=== PATIENT | female | born 1955 | race Caucasian/White ===

== ENCOUNTER 2022-09-27 11:47 | Emergency (ER) | payer MEDICARE, MEDICAID ==
[~2022-09-27] VITALS: Ht 165.1 cm; Wt 82.6 kg
[2022-09-27 12:07] VITALS: BP_SYST 135
[2022-09-27] MEDS ORDERED: OXYC-128 PO (12:55)
[2022-09-27] MEDS ORDERED: NAPR-688 PO (12:55)
[2022-09-27] MEDS ORDERED: KETOROLAC TROMETHAMINE 60 MG/2 ML VIAL IM ONE (13:00)
[2022-09-27 13:46] VITALS: BP_SYST 150
== END 2022-09-27 13:48 | disposition home or self-care (01) ==
LOC: SED 11:47
DX: M17.11 Unilateral primary osteoarthritis, right knee (principal); M25.561 Pain in right knee; Z79.899 Other long term (current) drug therapy
CPT/HCPCS: 99283; 73564; 96372; J1885

== ENCOUNTER 2023-01-18 12:30 | Inpatient (IN) | payer MEDICAID, MEDICARE ==
[~2023-01-18] VITALS: Ht 154.9 cm; Wt 76.7 kg
[2023-01-18 12:30] VITALS: BP_SYST 137; PULSE 87; RESP 18; TEMP 97.3; O2SAT 96
[~2023-01-18 12:30] MED LIST: NAPR-688 PO; OXYC-128 PO
[2023-01-18] MEDS ORDERED: ASPIRIN 81 MG TAB.CHEW PO ONE (12:45)
[2023-01-18 12:58] LABS: BASOPHILS % (AUTO) 0.6 % (0.0-2.0); EOSINOPHILS # (AUTO) 0.2 K/uL (0.0-0.4); EOSINOPHILS % (AUTO) 2.7 % (0.0-4.0); HEMATOCRIT 33.9 % (36-48); HEMOGLOBIN 11.1 g/dL (12.0-16.0); LYMPHOCYTES # (AUTO) 1.9 K/uL (1.0-5.5); LYMPHOCYTES % (AUTO) 25.2 % (20.5-51.5); MEAN CORPUSCULAR HEMOGLOBIN 27 pg (27-31); MEAN CORPUSCULAR HGB CONC 33 % (32-36); MEAN CORPUSCULAR VOLUME 84 fL (79.0-98.0); MONOCYTES # (AUTO) 0.6 K/uL (0.0-1.0); MONOCYTES % (AUTO) 7.6 % (1.7-9.3); NEUTROPHILS # (AUTO) 4.8 K/uL (1.8-7.7); NEUTROPHILS % (AUTO) 63.9 % (40.0-70.0); PLATELET COUNT (AUTO) 308 K/uL (130-430); RED BLOOD CELL COUNT(AUTO) 4.06 MIL/uL (4.2-6.2); RED CELL DISTRIBUTION WIDTH 14.6 % (9.0-15.0); WHITE BLOOD COUNT (AUTO) 7.6 K/uL (4.8-10.8)
[2023-01-18 13:10] LABS: ANION GAP 6 (5-15); CALCIUM 8.8 mg/dL (8.4-11.0); CARBON DIOXIDE 28 mmol/L (23-29); CHLORIDE 100 mmol/L (98-107); CREATININE 0.87 mg/dL (0.55-1.30); GFR AFRICAN AMERICAN 83 mL/min (>90); GLUCOSE 207 mg/dL (74-106); POTASSIUM 3.4 mmol/L (3.5-5.1); SODIUM SERUM 134 mmol/L (136-145); UREA NITROGEN, BLOOD 13 mg/dL (8-21)
[2023-01-18 13:17] LABS: ALANINE AMINOTRANSFERASE 23 U/L (12-78); ALBUMIN 3.8 g/dL (3.4-4.8); ASPARTATE AMINOTRANSFERASE 28 U/L (10-37); GFR NON AFRICAN-AMERICAN 69 mL/min (>90); TOTAL BILIRUBIN 0.4 mg/dL (0.0-1.0)
[2023-01-18 16:30] VITALS: BP_SYST 116; PULSE 73; RESP 16; TEMP 97.9; O2SAT 98
[2023-01-18 17:30] VITALS: BP_SYST 112; PULSE 78; RESP 17; TEMP 97.1; O2SAT 98
[2023-01-18] MEDS ORDERED: OXYCODONE/ACETAMINOPHEN 5-325 TABLET PO PRN (17:30)
[2023-01-18] MEDS ORDERED: PANTOPRAZOLE SODIUM 40 MG TAB PO ONE (17:45)
[2023-01-18] MEDS ORDERED: MORPHINE 4 MG INJ. 4 MG/ML VIAL IVP PRN (17:45)
[2023-01-18] MEDS ORDERED: cloNIDine HCL 0.1 MG TABLET PO PRN (17:45)
[2023-01-18] MEDS ORDERED: NITROGLYCERIN 0.4 MG TAB.SUBL SL PRN (17:45)
[2023-01-18] MEDS ORDERED: ACETAMINOPHEN 325 MG TABLET PO PRN (18:00)
[2023-01-18] MEDS ORDERED: ONDANSETRON HCL 4 MG/2 ML VIAL IVP PRN (18:00)
[2023-01-18] MEDS ORDERED: TEMAZEPAM 15 MG CAPSULE PO PRN (18:00)
[2023-01-18 18:01] LABS: BILIRUBIN,URINE NEGATIVE (NEGATIVE); BLOOD, URINE NEGATIVE (NEGATIVE); CLARITY/URINE CLEAR (CLEAR); COLOR,URINE YELLOW (YELLOW); GLUCOSE,URINE NEGATIVE (NEGATIVE); KETONES,URINE NEGATIVE (NEGATIVE); LEUKOCYTE ESTERASE ,URINE NEGATIVE (NEGATIVE); NITRITE, URINE NEGATIVE (NEGATIVE); PROTEIN URINE NEGATIVE (NEGATIVE); UROBILINOGEN,URINE 0.2 (0.2-1.0)
[2023-01-18] MEDS: NAPROXEN 250 MG TABLET PO SCH (22:08)
[2023-01-18] MEDS: metFORMIN HCL 500 MG TABLET PO SCH (22:08)
[2023-01-18 23:48] VITALS: O2SAT 98
[2023-01-19 00:19] VITALS: BP_SYST 117; PULSE 73; RESP 20; TEMP 97; O2SAT 97
[2023-01-19 05:30] VITALS: O2SAT 96
[2023-01-19 05:58] LABS: BASOPHILS % (AUTO) 0.7 % (0.0-2.0); EOSINOPHILS # (AUTO) 0.4 K/uL (0.0-0.4); EOSINOPHILS % (AUTO) 5.7 % (0.0-4.0); HEMATOCRIT 32.7 % (36-48); HEMOGLOBIN 10.7 g/dL (12.0-16.0); LYMPHOCYTES # (AUTO) 1.9 K/uL (1.0-5.5); MEAN CORPUSCULAR HEMOGLOBIN 27 pg (27-31); MEAN CORPUSCULAR HGB CONC 33 % (32-36); MEAN CORPUSCULAR VOLUME 84 fL (79.0-98.0); MONOCYTES # (AUTO) 0.7 K/uL (0.0-1.0); MONOCYTES % (AUTO) 9.2 % (1.7-9.3); NEUTROPHILS # (AUTO) 4.3 K/uL (1.8-7.7); NEUTROPHILS % (AUTO) 58.4 % (40.0-70.0); PLATELET COUNT (AUTO) 289 K/uL (130-430); RED BLOOD CELL COUNT(AUTO) 3.91 MIL/uL (4.2-6.2); RED CELL DISTRIBUTION WIDTH 14.7 % (9.0-15.0); WHITE BLOOD COUNT (AUTO) 7.3 K/uL (4.8-10.8)
[2023-01-19 06:11] LABS: CALCIUM 8.5 mg/dL (8.4-11.0); CREATININE 0.91 mg/dL (0.55-1.30); POTASSIUM 3.9 mmol/L (3.5-5.1)
[2023-01-19 06:24] LABS: ALBUMIN 3.6 g/dL (3.4-4.8); THYROID STIMULATING HORMONE 8.08 uIu/mL (0.34-4.82); TOTAL BILIRUBIN 0.4 mg/dL (0.0-1.0); TOTAL PROTEIN, SERUM 6.3 g/dL (6.4-8.3)
[2023-01-19 08:00] VITALS: BP_SYST 114; PULSE 78; RESP 16; TEMP 97; O2SAT 98
[2023-01-19] MEDS: metFORMIN HCL 500 MG TABLET PO SCH ×2 (08:47→17:09)
[2023-01-19] MEDS: ASPIRIN 81 MG TAB.CHEW PO SCH (08:47)
[2023-01-19] MEDS: NAPROXEN 250 MG TABLET PO SCH ×2 (08:49→20:13)
[2023-01-19] MEDS: PANTOPRAZOLE SODIUM 40 MG TAB PO SCH (08:49)
[2023-01-19] MEDS ORDERED: OLAN10TA3 PO (09:28)
[2023-01-19] MEDS ORDERED: CLON0.5T4 PO (09:28)
[2023-01-19] MEDS ORDERED: ESCI20TA PO (09:28)
[2023-01-19] MEDS ORDERED: FENO48TA8 PO (09:28)
[2023-01-19] MEDS ORDERED: TRAM50TA2 PO (09:28)
[2023-01-19] MEDS ORDERED: LEVO25TA7 PO (09:28)
[2023-01-19] MEDS ORDERED: NOR10 PO (09:28)
[2023-01-19] MEDS ORDERED: FINE10TA PO (09:28)
[2023-01-19] MEDS ORDERED: LEVO100T9 PO (09:28)
[2023-01-19] MEDS ORDERED: LISI1TAB57 PO (09:28)
[2023-01-19 12:00] VITALS: BP_SYST 120; PULSE 68; RESP 16; TEMP 97; O2SAT 96
[2023-01-19] MEDS: traMADol HCL HCL 50 MG TABLET (ULTRAM) PO PRN ×3 (12:34→23:23)
[2023-01-19 16:00] VITALS: BP_SYST 125; PULSE 68; RESP 18; TEMP 97; O2SAT 96
[2023-01-19 20:00] VITALS: BP_SYST 140; PULSE 83; RESP 18; TEMP 97.6; O2SAT 95
[2023-01-19] MEDS: INSULIN REGULAR, HUMAN 100 UNITS/ML, 3 ML VIAL (humuLIN R) SUBCUT PRN (20:21)
[2023-01-19] MEDS ORDERED: OLANZapine 10 MG TABLET PO SCH (21:00)
[2023-01-20 01:10] VITALS: BP_SYST 135; PULSE 77; RESP 16; TEMP 96.5; O2SAT 96
[2023-01-20 02:02] VITALS: O2SAT 95
[2023-01-20 07:00] VITALS: BP_SYST 126; PULSE 70; RESP 16; TEMP 97.8; O2SAT 96
[2023-01-20] MEDS ORDERED: LEVOTHYROXINE SODIUM 0.1 MG TABLET PO SCH (07:00)
[2023-01-20] MEDS ORDERED: LEVOTHYROXINE SODIUM 0.025 MG TABLET PO SCH ×2 (07:00)
[2023-01-20 07:05] VITALS: O2SAT 96
[2023-01-20 09:00] VITALS: BP_SYST 126; PULSE 70; RESP 16; TEMP 97.8; O2SAT 97
[2023-01-20] MEDS ORDERED: amLODIPine BESYLATE 10 MG TABLET PO SCH (09:00)
[2023-01-20] MEDS ORDERED: FENOFIBRATE NANOCRYSTALLIZED 48 MG TABLET (TRICOR) PO SCH (09:00)
[2023-01-20] MEDS ORDERED: ESCITALOPRAM OXALATE 10 MG TABLET PO SCH (09:00)
[2023-01-20] MEDS ORDERED: CITALOPRAM HYDROBROMIDE 20 MG TABLET PO SCH (09:00)
[2023-01-20] MEDS ORDERED: clonazePAM 0.5 MG TABLET PO SCH (09:00)
[2023-01-20] MEDS: metFORMIN HCL 500 MG TABLET PO SCH (10:40)
[2023-01-20] MEDS: ASPIRIN 81 MG TAB.CHEW PO SCH (10:41)
[2023-01-20] MEDS: NAPROXEN 250 MG TABLET PO SCH (10:41)
[2023-01-20] MEDS: PANTOPRAZOLE SODIUM 40 MG TAB PO SCH (10:43)
[2023-01-20] MEDS: INSULIN REGULAR, HUMAN 100 UNITS/ML, 3 ML VIAL (humuLIN R) SUBCUT PRN (12:14)
[2023-01-20 13:00] VITALS: BP_SYST 128; PULSE 72; RESP 18; TEMP 98; O2SAT 100
== END 2023-01-20 14:30 | disposition home or self-care (01) | DRG 198 ==
LOC: SED 12:30 → STU 14:56 → UNDOADMOB 14:56 → OBSVTOIN 15:00 → STU 15:00 → SMU 01-20 02:25 → STU 01-20 02:25 → INTOOBSV 01-20 14:16 → OBSVTOIN 01-20 14:16 → UNDODISIN 01-20 14:30
PROVIDERS: ADMIT Internal Medicine; ATTEND Internal Medicine
DX: R07.89 Other chest pain (principal); I25.10 Atherosclerotic heart disease of native coronary artery without angina pectoris; D64.9 Anemia, unspecified; E66.9 Obesity, unspecified; E11.9 Type 2 diabetes mellitus without complications; E03.9 Hypothyroidism, unspecified; F99 Mental disorder, not otherwise specified; Z96.659 Presence of unspecified artificial knee joint; Z68.31 Body mass index [BMI] 31.0-31.9, adult; E78.5 Hyperlipidemia, unspecified; I10 Essential (primary) hypertension; M19.90 Unspecified osteoarthritis, unspecified site; Z87.891 Personal history of nicotine dependence
CPT/HCPCS: 36415; 71045; 80053; 80061; 81003; 82962; 83037; 83690; 83880; 84439; 84443; 84484; 85025; 93005; 93306; 99285; G0378

== ENCOUNTER 2023-03-08 11:46 | Inpatient (IN) | payer MEDICAID, MEDICARE ==
[~2023-03-08] VITALS: Ht 154.9 cm; Wt 78.9 kg
[~2023-03-08 11:46] MED LIST changes: +CLON0.5T4 PO; +ESCI20TA PO; +FENO48TA8 PO; +FINE10TA PO; +LEVO100T9 PO; +LEVO25TA7 PO; +LISI1TAB57 PO; +NOR10 PO; +OLAN10TA3 PO; +TRAM50TA2 PO
[2023-03-08 11:57] VITALS: BP_SYST 137; PULSE 92; RESP 20; TEMP 98; O2SAT 98
[2023-03-08] MEDS ORDERED: ASPIRIN 81 MG TAB.CHEW PO ONE (12:45)
[2023-03-08 12:54] LABS: BASOPHILS % (AUTO) 0.5 % (0.0-2.0); EOSINOPHILS # (AUTO) 0.1 K/uL (0.0-0.4); EOSINOPHILS % (AUTO) 1.5 % (0.0-4.0); HEMATOCRIT 33.9 % (36-48); HEMOGLOBIN 11.1 g/dL (12.0-16.0); LYMPHOCYTES # (AUTO) 1.5 K/uL (1.0-5.5); LYMPHOCYTES % (AUTO) 17.3 % (20.5-51.5); MEAN CORPUSCULAR HEMOGLOBIN 27 pg (27-31); MEAN CORPUSCULAR HGB CONC 33 % (32-36); MEAN CORPUSCULAR VOLUME 84 fL (79.0-98.0); MONOCYTES # (AUTO) 0.5 K/uL (0.0-1.0); MONOCYTES % (AUTO) 6.2 % (1.7-9.3); NEUTROPHILS # (AUTO) 6.5 K/uL (1.8-7.7); NEUTROPHILS % (AUTO) 74.5 % (40.0-70.0); PLATELET COUNT (AUTO) 315 K/uL (130-430); RED BLOOD CELL COUNT(AUTO) 4.05 MIL/uL (4.2-6.2); RED CELL DISTRIBUTION WIDTH 15.5 % (9.0-15.0); WHITE BLOOD COUNT (AUTO) 8.8 K/uL (4.8-10.8)
[2023-03-08] MEDS ORDERED: ASPIRIN 81 MG TAB.CHEW ONE (12:56)
[2023-03-08 13:15] LABS: ANION GAP 10 (5-15); CALCIUM 8.2 mg/dL (8.4-11.0); CARBON DIOXIDE 26 mmol/L (23-29); CHLORIDE 102 mmol/L (98-107); CREATININE 0.93 mg/dL (0.55-1.30); GFR AFRICAN AMERICAN 77 mL/min (>90); GLUCOSE 161 mg/dL (74-106); POTASSIUM 3.5 mmol/L (3.5-5.1); SODIUM SERUM 138 mmol/L (136-145); UREA NITROGEN, BLOOD 20 mg/dL (8-21)
[2023-03-08 13:18] LABS: GFR NON AFRICAN-AMERICAN 64 mL/min (>90)
[2023-03-08 13:22] LABS: ALANINE AMINOTRANSFERASE 31 U/L (12-78); ASPARTATE AMINOTRANSFERASE 31 U/L (10-37); TOTAL BILIRUBIN 0.4 mg/dL (0.0-1.0); TOTAL PROTEIN, SERUM 6.9 g/dL (6.4-8.3)
[2023-03-08] MEDS ORDERED: cloNIDine HCL 0.1 MG TABLET PO PRN (14:00)
[2023-03-08] MEDS ORDERED: DEXTROSE 50% JECT 50 ML DISP.SYRIN IVP PRN (20:15)
[2023-03-08] MEDS ORDERED: D5W 1,000 ML IV PRN (20:15)
[2023-03-08] MEDS: ENOXAPARIN SODIUM 40 MG/0.4 ML SYRINGE SUBCUT SCH (21:56)
[2023-03-08] MEDS: OLANZapine 10 MG TABLET PO SCH (21:56)
[2023-03-08 22:22] VITALS: BP_SYST 127; PULSE 76; RESP 16; TEMP 98.4
[2023-03-09] VITALS (7 sets, daily range): BP systolic 117–147; PULSE 68–79; RESP 16–19; TEMP 97–98.8; O2SAT 96–100
[2023-03-09] MEDS: LEVOTHYROXINE SODIUM 0.1 MG TABLET PO SCH (06:24)
[2023-03-09] MEDS: LEVOTHYROXINE SODIUM 0.025 MG TABLET PO SCH (06:24)
[2023-03-09] MEDS: INSULIN REGULAR, HUMAN 100 UNITS/ML, 3 ML VIAL (humuLIN R) SUBCUT PRN ×2 (06:34→21:00)
[2023-03-09 07:51] LABS: BASOPHILS % (AUTO) 0.6 % (0.0-2.0); EOSINOPHILS # (AUTO) 0.5 K/uL (0.0-0.4); HEMATOCRIT 34.8 % (36-48); HEMOGLOBIN 11.3 g/dL (12.0-16.0); LYMPHOCYTES # (AUTO) 1.8 K/uL (1.0-5.5); LYMPHOCYTES % (AUTO) 23.4 % (20.5-51.5); MEAN CORPUSCULAR HEMOGLOBIN 27 pg (27-31); MEAN CORPUSCULAR HGB CONC 33 % (32-36); MEAN CORPUSCULAR VOLUME 84 fL (79.0-98.0); MONOCYTES # (AUTO) 0.6 K/uL (0.0-1.0); MONOCYTES % (AUTO) 8.1 % (1.7-9.3); NEUTROPHILS # (AUTO) 4.8 K/uL (1.8-7.7); NEUTROPHILS % (AUTO) 61.9 % (40.0-70.0); PLATELET COUNT (AUTO) 294 K/uL (130-430); RED BLOOD CELL COUNT(AUTO) 4.14 MIL/uL (4.2-6.2); RED CELL DISTRIBUTION WIDTH 15.3 % (9.0-15.0); WHITE BLOOD COUNT (AUTO) 7.7 K/uL (4.8-10.8)
[2023-03-09 07:56] LABS: CREATININE 0.74 mg/dL (0.55-1.30); POTASSIUM 3.4 mmol/L (3.5-5.1)
[2023-03-09 08:08] LABS: ALBUMIN 3.6 g/dL (3.4-4.8); FREE T4 (FREE THYROXINE) 1.1 ng/dL (0.6-1.6); THYROID STIMULATING HORMONE 3.22 uIu/mL (0.34-4.82); TOTAL BILIRUBIN 0.4 mg/dL (0.0-1.0); TOTAL PROTEIN, SERUM 6.6 g/dL (6.4-8.3)
[2023-03-09] MEDS: HYDROCHLOROTHIAZIDE 25 MG TABLET (HCTZ) PO SCH (08:33)
[2023-03-09] MEDS: CITALOPRAM HYDROBROMIDE 20 MG TABLET PO SCH (08:33)
[2023-03-09] MEDS: FENOFIBRATE NANOCRYSTALLIZED 48 MG TABLET (TRICOR) PO SCH (08:34)
[2023-03-09] MEDS: amLODIPine BESYLATE 10 MG TABLET PO SCH (08:34)
[2023-03-09] MEDS: lisinopriL 20 MG TABLET PO SCH (08:34)
[2023-03-09] MEDS: clonazePAM 0.5 MG TABLET PO SCH (08:34)
[2023-03-09 08:51] LABS: HEMOGLOBIN A1C 7.97 % (<5.7)
[2023-03-09] MEDS ORDERED: ESCITALOPRAM OXALATE 10 MG TABLET PO SCH (09:00)
[2023-03-09 09:08] LABS: PROTHROMBIN TIME 10.4 SECS (9.5-12.5)
[2023-03-09] MEDS: traMADol HCL HCL 50 MG TABLET (ULTRAM) PO PRN ×2 (10:10→16:45)
[2023-03-09 12:55] LABS: BILIRUBIN,URINE NEGATIVE (NEGATIVE); BLOOD, URINE NEGATIVE (NEGATIVE); CLARITY/URINE CLEAR (CLEAR); COLOR,URINE YELLOW (YELLOW); GLUCOSE,URINE NEGATIVE (NEGATIVE); KETONES,URINE NEGATIVE (NEGATIVE); LEUKOCYTE ESTERASE ,URINE NEGATIVE (NEGATIVE); NITRITE, URINE NEGATIVE (NEGATIVE); PH,URINE 6.5 (5.0-8.0); PROTEIN URINE NEGATIVE (NEGATIVE); UROBILINOGEN,URINE 0.2 (0.2-1.0)
[2023-03-09] MEDS ORDERED: POTASSIUM CHLORIDE 20 MEQ TAB.PRT.SR PO ONE (18:30)
[2023-03-09] MEDS: OLANZapine 10 MG TABLET PO SCH (20:50)
[2023-03-09] MEDS: ENOXAPARIN SODIUM 40 MG/0.4 ML SYRINGE SUBCUT SCH (20:50)
[2023-03-09] MEDS: OXYCODONE/ACETAMINOPHEN 5-325 TABLET PO PRN (20:51)
[2023-03-10 00:43] VITALS: BP_SYST 104; PULSE 67; RESP 18; TEMP 97.2; O2SAT 95
[2023-03-10] MEDS: LEVOTHYROXINE SODIUM 0.1 MG TABLET PO SCH (06:29)
[2023-03-10 06:32] LABS: BASOPHILS % (AUTO) 0.6 % (0.0-2.0); EOSINOPHILS # (AUTO) 0.7 K/uL (0.0-0.4); HEMOGLOBIN 11.1 g/dL (12.0-16.0); LYMPHOCYTES % (AUTO) 26.6 % (20.5-51.5); MEAN CORPUSCULAR HEMOGLOBIN 27 pg (27-31); MEAN CORPUSCULAR HGB CONC 33 % (32-36); MEAN CORPUSCULAR VOLUME 84 fL (79.0-98.0); MONOCYTES # (AUTO) 0.7 K/uL (0.0-1.0); MONOCYTES % (AUTO) 8.8 % (1.7-9.3); NEUTROPHILS # (AUTO) 4.1 K/uL (1.8-7.7); PLATELET COUNT (AUTO) 300 K/uL (130-430); RED BLOOD CELL COUNT(AUTO) 4.04 MIL/uL (4.2-6.2); RED CELL DISTRIBUTION WIDTH 15.3 % (9.0-15.0); WHITE BLOOD COUNT (AUTO) 7.5 K/uL (4.8-10.8)
[2023-03-10] MEDS: LEVOTHYROXINE SODIUM 0.025 MG TABLET PO SCH (06:33)
[2023-03-10 07:22] LABS: CALCIUM 7.9 mg/dL (8.4-11.0); POTASSIUM 4.3 mmol/L (3.5-5.1)
[2023-03-10 08:00] VITALS: BP_SYST 133; PULSE 61; RESP 18; TEMP 97.9; O2SAT 96
[2023-03-10] MEDS: FENOFIBRATE NANOCRYSTALLIZED 48 MG TABLET (TRICOR) PO SCH (10:23)
[2023-03-10] MEDS: OXYCODONE/ACETAMINOPHEN 5-325 TABLET PO PRN (10:23)
[2023-03-10] MEDS: HYDROCHLOROTHIAZIDE 25 MG TABLET (HCTZ) PO SCH (10:24)
[2023-03-10] MEDS: lisinopriL 20 MG TABLET PO SCH (10:24)
[2023-03-10] MEDS: clonazePAM 0.5 MG TABLET PO SCH (10:25)
[2023-03-10] MEDS: CITALOPRAM HYDROBROMIDE 20 MG TABLET PO SCH (10:25)
[2023-03-10] MEDS: amLODIPine BESYLATE 10 MG TABLET PO SCH (10:26)
[2023-03-10 11:51] VITALS: BP_SYST 116; PULSE 83; RESP 18; TEMP 98.2; O2SAT 97
[2023-03-10 12:00] VITALS: BP_SYST 116; PULSE 83; RESP 18; TEMP 98.2; O2SAT 97
== END 2023-03-10 12:56 | disposition home health service (06) | DRG 198 ==
LOC: SED 11:46 → STU 13:56 → SMU 03-10 04:13
PROVIDERS: ADMIT Internal Medicine; ATTEND Internal Medicine
DX: R07.89 Other chest pain (principal); I25.10 Atherosclerotic heart disease of native coronary artery without angina pectoris; D64.9 Anemia, unspecified; E11.9 Type 2 diabetes mellitus without complications; E03.9 Hypothyroidism, unspecified; E66.9 Obesity, unspecified; I10 Essential (primary) hypertension; Z96.659 Presence of unspecified artificial knee joint; E87.6 Hypokalemia; Z68.32 Body mass index [BMI] 32.0-32.9, adult
CPT/HCPCS: 36415; 71045; 80048; 80053; 80061; 81003; 82962; 83037; 83735; 83880; 84439; 84443; 84484; 85025; 85610-TC; 85730-TC; 93005; 99285; G0378; J1650; J1815

== ENCOUNTER 2023-03-25 10:57 | Outpatient (CLI) | payer MEDICARE, MEDICAID | END 2023-03-25 18:30 | disposition home or self-care (01) | LOC: SLB 10:57 | PROVIDERS: ATTEND Student in an Organized Health Care Education/Training Program | DX: M17.11 Unilateral primary osteoarthritis, right knee (principal); M25.561 Pain in right knee | CPT/HCPCS: 36415; 83037 ==

== ENCOUNTER 2023-06-24 11:52 | Emergency (ER) | payer MEDICARE, MEDICAID ==
[~2023-06-24] VITALS: Ht 154.9 cm; Wt 77.1 kg
[2023-06-24 11:55] VITALS: BP_SYST 140; PULSE 97; RESP 18; TEMP 97.5; O2SAT 98
[2023-06-24] MEDS ORDERED: HYDR-3917 PO (13:43)
[2023-06-24 13:50] VITALS: BP_SYST 140; PULSE 97; RESP 18; TEMP 97.5; O2SAT 98
== END 2023-06-24 13:45 | disposition home or self-care (01) ==
LOC: SED 11:52
DX: M25.461 Effusion, right knee (principal); E11.9 Type 2 diabetes mellitus without complications; I10 Essential (primary) hypertension; E78.5 Hyperlipidemia, unspecified; Z79.899 Other long term (current) drug therapy
CPT/HCPCS: 73700-TC; 76376; 99284

== ENCOUNTER 2023-10-24 04:50 | Day surgery (SDC) | payer MEDICARE, MEDICAID ==
[2023-10-18 11:06] LABS: BASOPHILS % (AUTO) 0.7 % (0.0-2.0); EOSINOPHILS # (AUTO) 0.3 K/uL (0.0-0.4); HEMATOCRIT 34.2 % (36-48); HEMOGLOBIN 11.2 g/dL (12.0-16.0); LYMPHOCYTES # (AUTO) 1.7 K/uL (1.0-5.5); LYMPHOCYTES % (AUTO) 26.1 % (20.5-51.5); MEAN CORPUSCULAR HEMOGLOBIN 27 pg (27-31); MEAN CORPUSCULAR HGB CONC 33 % (32-36); MEAN CORPUSCULAR VOLUME 83 fL (79.0-98.0); MONOCYTES # (AUTO) 0.5 K/uL (0.0-1.0); MONOCYTES % (AUTO) 7.1 % (1.7-9.3); NEUTROPHILS % (AUTO) 62.1 % (40.0-70.0); PLATELET COUNT (AUTO) 315 K/uL (130-430); RED BLOOD CELL COUNT(AUTO) 4.13 MIL/uL (4.2-6.2); RED CELL DISTRIBUTION WIDTH 15.6 % (9.0-15.0); WHITE BLOOD COUNT (AUTO) 6.4 K/uL (4.8-10.8)
[2023-10-18 11:11] LABS: INR 1.1 (0.8-1.2); PROTHROMBIN TIME 11.2 SECS (9.5-12.5)
[2023-10-18 11:12] LABS: CREATININE 0.83 mg/dL (0.55-1.30); POTASSIUM 4.2 mmol/L (3.5-5.1); TOTAL BILIRUBIN 0.4 mg/dL (0.0-1.0); TOTAL PROTEIN, SERUM 7.4 g/dL (6.4-8.3)
[2023-10-18 11:31] LABS: HEMOGLOBIN A1C 7.2 % (<5.7)
[~2023-10-24] VITALS: Ht 154.9 cm; Wt 77.7 kg
[~2023-10-24 04:50] MED LIST changes: +HYDR-3917 PO
[2023-10-24] MEDS ORDERED: CELECOXIB 100 MG CAPSULE ONE (05:28)
[2023-10-24] MEDS ORDERED: ACETAMINOPHEN 500 MG TABLET ONE (05:28)
[2023-10-24] MEDS ORDERED: SCOPOLAMINE HYDROBROMIDE 1 MG PATCH .72 H (TRANSDERM-SCOP) TD ONE (05:31)
[2023-10-24] MEDS ORDERED: oxyCODONE HCL 10 MG TAB.ER.12H PO ONE (05:31)
[2023-10-24] MEDS ORDERED: GABAPENTIN 300 MG CAPSULE ONE (05:32)
[2023-10-24] MEDS: ACETAMINOPHEN 500 MG TABLET PO ONE (06:02)
[2023-10-24] MEDS: GABAPENTIN 300 MG CAPSULE PO ONE (06:02)
[2023-10-24] MEDS: SCOPOLAMINE HYDROBROMIDE 1 MG PATCH .72 H (TRANSDERM-SCOP) TD ONE (06:02)
[2023-10-24] MEDS: CELECOXIB 100 MG CAPSULE PO ONE (06:02)
[2023-10-24] MEDS ORDERED: ceFAZolin SODIUM 2 GM in D5W 100 ML IV ONE (07:00)
[2023-10-24] MEDS: oxyCODONE HCL 10 MG TAB.ER.12H PO ONE (07:04)
[2023-10-24] MEDS ORDERED: LACTULOSE 20 GM/30 ML UDC PO PRN (07:15)
[2023-10-24] MEDS ORDERED: METOCLOPRAMIDE HCL 10 MG/2 ML VIAL IVP PRN (07:15)
[2023-10-24] MEDS ORDERED: DIPHENHYDRAMINE HCL 25 MG CAPSULE PO PRN (07:15)
[2023-10-24] MEDS ORDERED: BISACODYL 10 MG/SUPPOSITORY RC PRN (07:15)
[2023-10-24] MEDS ORDERED: MIDAZOLAM HCL 2 MG/2 ML VIAL (VERSED) IVP PRN (08:00)
[2023-10-24] MEDS ORDERED: LABETALOL 100 MG/ 20ML VIAL IVP PRN (08:00)
[2023-10-24] MEDS ORDERED: LR 1,000 ML IV SCH (08:00)
[2023-10-24] MEDS ORDERED: MEPERIDINE HCL/PF 25 MG/ML DISP.SYRIN IVP PRN (08:00)
[2023-10-24] MEDS ORDERED: hydrALAZINE HCL 20 MG/ML VIAL IVP PRN (08:00)
[2023-10-24] MEDS ORDERED: ONDANSETRON HCL 4 MG/2 ML VIAL IVP PRN ×2 (08:00→11:45)
[2023-10-24] MEDS ORDERED: HYDROmorphone 1 MG/ML INJ. CARTRIDGE IVP PRN ×3 (08:00→11:00)
[2023-10-24 10:33] VITALS: O2SAT 99
[2023-10-24] MEDS ORDERED: traMADol HCL HCL 50 MG TABLET (ULTRAM) PO PRN (11:00)
[2023-10-24] MEDS ORDERED: oxyCODONE HCL 5 MG TABLET PO PRN (11:00)
[2023-10-24] MEDS ORDERED: LORATADINE 10 MG TABLET PO PRN (11:00)
[2023-10-24] MEDS ORDERED: SENNOSIDES/DOCUSATE SODIUM 1 TAB TABLET(SENOKOT-S) PO ONE (11:30)
[2023-10-24] MEDS ORDERED: HYDROmorphone 1 MG/ML INJ. CARTRIDGE ONE (11:37)
[2023-10-24] MEDS: HYDROmorphone 1 MG/ML INJ. CARTRIDGE IVP PRN ×2 (11:39→14:00)
[2023-10-24] MEDS: OXYCODONE/ACETAMINOPHEN 5-325 TABLET ONE (13:04)
[2023-10-24] MEDS: oxyCODONE HCL 5 MG TABLET PO PRN (13:04)
[2023-10-24] MEDS ORDERED: OXYCODONE/ACETAMINOPHEN 5-325 TABLET PO ONE (13:30)
[2023-10-24] MEDS ORDERED: ACETAMINOPHEN 500 MG TABLET PO SCH (14:00)
[2023-10-24] MEDS ORDERED: KETOROLAC TROMETHAMINE 10 MG TABLET (TORADOL) PO SCH (14:00)
[2023-10-24 14:43] VITALS: BP_SYST 145; PULSE 70; RESP 16; TEMP 98
[2023-10-24] MEDS ORDERED: SENNOSIDES/DOCUSATE SODIUM 1 TAB TABLET(SENOKOT-S) PO SCH (21:00)
[2023-10-25] MEDS ORDERED: ASPIRIN 81 MG TAB.CHEW PO SCH (09:00)
[2023-10-25] MEDS ORDERED: CELECOXIB 200 MG CAPSULE PO SCH (11:00)
== END 2023-10-24 15:37 | disposition home or self-care (01) ==
LOC: SDS 04:50 → SMU 04:50 → EDSTATUS 07:30 → SDS 15:37
PROVIDERS: ATTEND Student in an Organized Health Care Education/Training Program
DX: M17.11 Unilateral primary osteoarthritis, right knee (principal); I10 Essential (primary) hypertension; E11.9 Type 2 diabetes mellitus without complications; E78.5 Hyperlipidemia, unspecified; E03.9 Hypothyroidism, unspecified; K21.9 Gastro-esophageal reflux disease without esophagitis; E66.9 Obesity, unspecified; Z68.32 Body mass index [BMI] 32.0-32.9, adult; Z96.652 Presence of left artificial knee joint; Z79.84 Long term (current) use of oral hypoglycemic drugs; Z79.899 Other long term (current) drug therapy; Z87.891 Personal history of nicotine dependence; Z82.49 Family history of ischemic heart disease and other diseases of the circulatory system; Z83.3 Family history of diabetes mellitus; Z84.1 Family history of disorders of kidney and ureter
CPT/HCPCS: 80053; 83037; 85025; 85610; 85730; 87081; 36415; 71046; 27447; 97162; 64447; 73560; 97110; 97530; 97116; 82948; 88305; 88311; J0696; J1170; J7060; C1776 ×3

== ENCOUNTER 2023-11-16 14:34 | Outpatient (CLI) | payer MEDICARE, MEDICAID | END 2023-11-16 19:13 | disposition home or self-care (01) | LOC: SUS 14:34 | PROVIDERS: ATTEND Student in an Organized Health Care Education/Training Program | DX: I82.409 Acute embolism and thrombosis of unspecified deep veins of unspecified lower extremity (principal) | CPT/HCPCS: 93971 ==

== ENCOUNTER 2024-01-18 20:11 | Emergency (ER) | payer MEDICARE, MEDICAID ==
[~2024-01-18] VITALS: Ht 154.9 cm; Wt 73.5 kg
[2024-01-18 20:17] VITALS: BP_SYST 133; PULSE 109; RESP 20; TEMP 98.1; O2SAT 96
[2024-01-18 22:01] LABS: BASOPHILS % (AUTO) 0.5 % (0.0-2.0); EOSINOPHILS # (AUTO) 0.1 K/uL (0.0-0.4); EOSINOPHILS % (AUTO) 0.7 % (0.0-4.0); HEMATOCRIT 35.3 % (36-48); HEMOGLOBIN 11.8 g/dL (12.0-16.0); LYMPHOCYTES # (AUTO) 1.6 K/uL (1.0-5.5); LYMPHOCYTES % (AUTO) 16.8 % (20.5-51.5); MEAN CORPUSCULAR HEMOGLOBIN 27 pg (27-31); MEAN CORPUSCULAR HGB CONC 33 % (32-36); MEAN CORPUSCULAR VOLUME 81 fL (79.0-98.0); MONOCYTES # (AUTO) 0.8 K/uL (0.0-1.0); MONOCYTES % (AUTO) 8.1 % (1.7-9.3); NEUTROPHILS # (AUTO) 7.1 K/uL (1.8-7.7); NEUTROPHILS % (AUTO) 73.9 % (40.0-70.0); PLATELET COUNT (AUTO) 367 K/uL (130-430); RED BLOOD CELL COUNT(AUTO) 4.35 MIL/uL (4.2-6.2); RED CELL DISTRIBUTION WIDTH 14.5 % (9.0-15.0); WHITE BLOOD COUNT (AUTO) 9.6 K/uL (4.8-10.8)
[2024-01-18 22:07] LABS: ANION GAP 9 (5-15); CALCIUM 9.3 mg/dL (8.4-11.0); CARBON DIOXIDE 26 mmol/L (23-29); CHLORIDE 100 mmol/L (98-107); CREATININE 0.95 mg/dL (0.55-1.30); GFR AFRICAN AMERICAN 75 mL/min (>90); GLUCOSE 124 mg/dL (74-106); POTASSIUM 3.8 mmol/L (3.5-5.1); SODIUM SERUM 135 mmol/L (136-145); UREA NITROGEN, BLOOD 16 mg/dL (8-21)
[2024-01-18 22:08] LABS: ALCOHOL, BLOOD < 3 mg/dL (<10); GFR NON AFRICAN-AMERICAN 62 mL/min (>90)
[2024-01-19 00:24] VITALS: TEMP 98.1
[2024-01-19] MEDS: LORazepam 1 MG TABLET PO ONE (00:34)
[2024-01-19 01:21] VITALS: BP_SYST 131; PULSE 81; RESP 18; O2SAT 97
== END 2024-01-19 01:13 | disposition home or self-care (01) ==
LOC: SED 20:11
DX: F20.9 Schizophrenia, unspecified (principal); R00.0 Tachycardia, unspecified; E11.9 Type 2 diabetes mellitus without complications; I10 Essential (primary) hypertension; E78.5 Hyperlipidemia, unspecified; Z79.899 Other long term (current) drug therapy; Z79.2 Long term (current) use of antibiotics
CPT/HCPCS: 99284; 80048; 85025; 36415; 93005; G0482